=== PATIENT | female | born 1985 | race Caucasian/White ===

== ENCOUNTER 2020-11-26 15:13 | Emergency (ER) | payer OTHER ==
[~2020-11-26 15:13] MED LIST: ADVIL200 M1 PO; CALCIUM + VITA1 EACH PO; CERTAGEN1 EACH PO; ESOMEPRAZOLE MA40 MG PO; FLEXERIL5 MG PO; FOLIC ACID1 MG PO; GLUCOSAMINE &1 EAC1 PO; IBUPROFEN800 MG PO; NEXIUM40 MG PO; NORCO 5-325 TA1 EACH PO; PRENATAL FORMU1 EACH PO; PROBIOTIC1 EAC1 PO; REMICADE100 MG IV; RHEUMATREX2.5 MG PO; TESSALON PERLE100 M1 PO; VITAMIN D2000 UNIT PO; XELJANZ10 MG PO; ZPAK PO
[2020-11-26 15:43] LABS: EOSINOPHIL 0.1 % (0-5); HCT 43.4 % (37.0-47.0); HGB 13.7 g/dl (12.5-16.0); LYMPHOCYTE 14.5 % (15-48); MCH 29.1 pg (25.0-31.0); MCHC 31.6 g/dL (32.0-36.0); MCV 92.1 fL (78.0-100.0); MPV 9.3 fL (6.0-9.5); NEUTROPHIL 74.5 % (41-80); NRBC 0; PLT 361 K/uL (150-400); RBC 4.71 M/uL (4.20-5.40); RDW 14.8 % (11.5-14.0); WBC 15.9 K/uL (4.0-10.5)
[2020-11-26 15:48] LABS: INR 0.88 (0.9-1.2); PROTHROMBIN TIME 11.3 SECONDS (11.4-13.6)
[2020-11-26 16:04] LABS: ALBUMIN 3.6 g/dL (3.4-5.0); BILIRUBIN - TOTAL 0.2 mg/dL (0.2-1.0); BUN/CREAT RATIO (CALC) 19.4 RATIO; CREATININE 0.62 mg/dL (0.51-0.95); GLOBULIN (CALCULATION) 4.8 g/dL; POTASSIUM 3.7 mmol/L (3.5-5.1); TOTAL PROTEIN 8.4 g/dL (6.4-8.2)
== END 2020-11-26 18:18 | disposition home or self-care (01) ==
LOC: FER 15:13
PROVIDERS: Emergency Medicine
DX: R07.89 Other chest pain (principal); R00.2 Palpitations; R11.0 Nausea; Z86.16 Personal history of COVID-19
CPT/HCPCS: 36415; 71045; 80053; 84484; 85025; 85610; 93005